=== PATIENT | female | born 1995 | race Caucasian/White ===

== ENCOUNTER 2017-07-23 04:08 | Emergency (ER) | payer MEDICAID ==
[~2017-07-23] VITALS: Ht 162.6 cm; Wt 59.2 kg
[2017-07-23 04:12] VITALS: BP 132/71
[2017-07-23 04:25] VITALS: BP 132/71
[2017-07-23] MEDS: NACL 0.9% 1,000 ML IV ONE (05:37)
[2017-07-23] MEDS: ONDANSETRON 4 MG/2 ML VIAL IVP ONE (05:38)
== END 2017-07-23 06:18 | disposition home or self-care (01) ==
LOC: MED 04:08
DX: O21.8 Other vomiting complicating pregnancy (principal); Z3A.11 11 weeks gestation of pregnancy
CPT/HCPCS: 81002; 81025; 96361; 96374; 99284; J2405; J7030